=== PATIENT | female | born 1950 | race Caucasian/White ===

== ENCOUNTER 2024-06-03 21:03 | Outpatient (REF) | payer MEDICARE, SELFPAY ==
[2024-06-03 15:16] LABS: Anion Gap 6.1 mmol/L (3-11); BUN 15 mg/dL (7-18); CO2 28.9 mmol/L (21.0-32.0); CREATININE 0.8 mg/dL (0.55-1.02); Calcium 8.8 mg/dL (8.5-10.1); Chloride 106 mmol/L (98-107); Estimated GFR 77.27 (mL/min/1.73m2); Glucose 89 mg/dL (74-106); Potassium 4.5 mmol/L (3.5-5.1); Sodium 141 mmol/L (136-145); TSH (W/Ref FT4) 4.44 uIU/mL (0.36-3.74); Vitamin D 25 Total 18.3 ng/mL (30-100)
[2024-06-03 16:36] LABS: FREE T4 0.98 ng/dL (0.76-1.46)
== END 2024-06-03 21:04 | disposition home or self-care (01) ==
LOC: NCHCN 21:03
PROVIDERS: PCP Family Medicine; Visit Provider Family Medicine
DX: R94.6 Abnormal results of thyroid function studies (principal); M85.89 Other specified disorders of bone density and structure, multiple sites
CPT/HCPCS: 80048; 82306; 84439; 84443

== ENCOUNTER 2024-10-12 18:36 | Outpatient (REF) | payer MEDICARE, SELFPAY ==
[2024-10-12 21:50] LABS: FREE T4 0.87 ng/dL (0.76-1.46); TSH 4.02 uIU/mL (0.36-3.74)
== END 2024-10-12 18:37 | disposition home or self-care (01) ==
LOC: NCHCN 18:36
PROVIDERS: PCP Family Medicine; Visit Provider Family Medicine
DX: R94.6 Abnormal results of thyroid function studies (principal)
CPT/HCPCS: 84439; 84443

== ENCOUNTER 2025-04-14 10:12 | Outpatient (REF) | payer MEDICARE, SELFPAY ==
[2025-04-14 14:59] LABS: Abs Immature Grans 0.01 10^3/uL (0.0-0.06); HCT 40.2 % (36.0-46.0); HGB 13.0 g/dL (11.2-15.7); Immature Grans % 0.2 %; MCH 29.7 pg (27.0-33.0); MCHC 32.3 % (32.0-36.0); MCV 92 fL (80-95); MPV 8.9 fL (8.0-11.0); Platelet Count 243 10^3/uL (130-400); RBC 4.38 10^6/uL (3.93-5.22); RDW 12.5 % (11.7-14.6); RDW-SD 41.7 fL; WBC 5.06 10^3/uL (4.4-10.8)
[2025-04-14 15:39] LABS: ALT 29 U/L (14-59); AST 17 U/L (15-37); Albumin 3.5 g/dL (3.4-5.0); Alkaline Phosphatase 84 U/L (46-116); Bilirubin, Direct 0.2 mg/dL (0.0-0.2); Bilirubin, Total 0.6 mg/dL (0.2-1.0); Calculated LDL 101 mg/dL (<100); Cholesterol 173 mg/dL (<200); Ferritin 71 ng/mL (8-252); HDL Cholesterol 64 mg/dL (>or=50); TSH (W/Ref FT4) 4.84 uIU/mL (0.36-3.74); Total Protein 6.5 g/dL (6.4-8.2); Triglyceride 43 mg/dL (<150)
[2025-04-14 15:47] LABS: Hemoglobin A1C 5.3 % (<5.7)
[2025-04-14 17:05] LABS: Vitamin B12 663 pg/mL (193-986)
[2025-04-19 12:43] LABS: Insulin, Free 11 mcIU/mL (3 - 25); Insulin, Total 11 mcIU/mL (3 - 25)
== END 2025-04-14 10:13 | disposition home or self-care (01) ==
LOC: NCHCN 10:12
PROVIDERS: PCP Family Medicine; Visit Provider Family Medicine
DX: E66.9 Obesity, unspecified (principal)
CPT/HCPCS: 80061; 80076; 83525; 83527; 82607; 82728; 83036; 84439; 84443; 85025